=== PATIENT | female | born 1930 | race Caucasian/White ===

== ENCOUNTER 2016-08-26 09:06 | Emergency (ER) | payer MEDICARE ==
--- NOTE | 2016-08-26 09:58 | CT REPORT ---
HISTORY: Fall COMPARISON: None. TECHNIQUE: Axial non-contrast images obtained from skull vertex through foramen magnum. Dose reduction technique was utilized. FINDINGS: There is age-appropriate volume loss. There is no space-occupying mass or midline shift. There is no pathologic extra-axial fluid collection or intracranial hemorrhage. The ventricular configuration i s within normal limits. There is no hydrocephalus. The deep white matter and basal ganglia are maint ained. There is mottled hypoattenuation of the periventricular white matter of both frontal lobes whi ch is probably the sequelae of chronic small vessel ischemia. No evidence of acute infarct. There i s no skull fracture or depression. The paranasal sinuses are clear. IMPRESSION: 1. Age-appropriate volume loss. 2. No intracranial mass or hemorrhage. 3. Periventricular white matter changes consistent with chronic small vessel ischemia. Results were communicated to RORY HOWARD MD at 08/26/2016 9:56 AM. Final Electronic Signature: This report was electronically signed by Fercho Darby MD on 08/26/2016 9: 55 AM. [facility] /
--- NOTE | 2016-08-26 10:13 | RADIOLOGY REPORT ---
HISTORY: Fall. Wrist injury. COMPARISON: None. FINDINGS: 4 views of the wrist obtained. There is no fracture. There are marked degenerative changes involvin g the first carpal metacarpal joint and the intercarpal joint between the scaphoid trapezium and trap ezoid. There is no scapholunate dislocation. There is generalized osteopenia. No opaque foreign bod y or pathologic soft tissue calcifications. IMPRESSION: 1. Osteopenia with no acute fracture. 2. Marked degenerative joint disease involving the first carpal metacarpal and intercarpal joints bet ween the scaphoid trapezium and trapezoid. Results were communicated to RORY HOWARD MD at 08/26/2016 10:11 AM. Final Electronic Signature: This report was electronically signed by Fercho Darby MD on 08/26/2016 10 :10 AM. [facility] /
--- NOTE | 2016-08-27 13:03 | ER PHYSICIAN DOCUMENTATION ---
Physician Documentation [facility] Name:Joy Aguilera Age:86 yrs Sex:Female :[id number] Arrival Date:08/26/2016 Time:09:06 Bed6 Private MD: Marcos Huang Disposition: 08/26 10:15 Chart complete. cd Disposition: 08/26/16 10:13 Discharged to Home/Self Care. Impression: Facial Contusion, Head Contusion, Unspecified Part of Head, Wrist Contusion. - Condition is Good. - Discharge Instructions: CONTUSION, Upper Extremity, FACIAL CONTUSION, no wakeup. - Medical Reconciliation form form. - Follow up: Julio Paul DO, Randall Macias MD; When: 2 - 3 days; Reason: Recheck today's complaints, Continuance of care. - Problem is new. - Symptoms have improved. HPI: 09:10 This 86 yrs old Female presents to ER via Private Vehicle with complaints of cd Wrist Injury - rt and facial / head contusions. 09:10 Details of fall: The patient fell from an upright position, while walking, missed step cd on deck and fell forward. Onset: The symptom(s)/episode began/occurred acutely, yesterday. Associated injuries: The patient sustained injury to the head, contusion, tenderness, right hand, contusion, decreased range of motion, painful injury, swelling. Associated signs and symptoms: Pertinent negatives: abdominal pain, chest pain, confusion, headache, memory problems, nausea, pelvic pain, vomiting, weakness, Loss of consciousness: the patient experienced no loss of consciousness. Severity of symptoms: At their worst the symptoms were moderate, in the emergency department the symptoms are unchanged. The patient has not experienced similar symptoms in the past. Patient is on Coumadin for Atrial Fibrillation. Historical: - Allergies: No known Allergies; - Home Meds: 1. atorvastatin oral 2. Carbidopa-Levodopa Oral 3. Clobetasol Propionate Topical 4. Synthroid Oral 5. Lisinopril Oral 6. multivitamin with minerals oral 7. Tramadol Oral 8. Coumadin Oral - PMHx: ARTHRITIS; DIVERTICULITIS; STROKE; ATRIAL FIB; Pseudougout; HYPOTHYROIDISM; HYPERTENSION; - PSHx: Right Knee Surgery; - Tetanus: < 10 years. - Ebola Screening: : Patient denies exposure to infectious person. Patient denies travel to an Ebola-affected area in the 21 days before illness onset. . - Social history: Smoking status: Patient states was never smoker of tobacco. Patient uses alcohol but reports only rare drinking. Patient/guardian denies using marijuana. ROS: 09:25 Eyes: Negative for injury, pain, redness, discharge, blurry vision and loss of vision. cd ENT: Negative for injury, pain, epistaxis and discharge. Cardiovascular: Negative for chest pain, palpitations, edema and pleuritic pain. Respiratory: Negative for shortness of breath, dyspnea on exertion, cough, sputum production, wheezing, hemoptysis and pleuritic chest pain. Abdomen/GI: Negative for abdominal pain, nausea, vomiting, diarrhea, constipation, distension, melena, hematochezia and hematemesis. Back: Negative for injury, pain or muscle spasms. : Negative for injury, bleeding, discharge, dysuria, frequency, urgency and swelling. 09:25 Skin: Negative for injury, rash, itching and discoloration. cd 09:25 Constitutional: Negative for chills, fever, poor PO intake. 09:25 Neck: Negative for injury or acute deformity, pain with movement, pain at rest, stiffness, bony tenderness. 09:25 MS/extremity: Positive for injury or acute deformity, contusion, decreased range of motion, swelling, tenderness, of the dorsal aspect of proximal phalanx of right thumb and right wrist, Negative for paresthesias. 09:25 Neuro: Positive for head / facial contusions, Negative for altered mental status, headache, loss of consciousness, numbness, speech changes, syncope, tingling, visual changes, weakness. 09:25 All other systems are negative. Exam: Chest/axilla: Normal chest wall appearance and motion. Nontender with no deformity. No lesions are appreciated. Cardiovascular: Regular rate and rhythm with a normal S1 and S2. No gallops, murmurs, or rubs. Normal PMI, no JVD. No pulse deficits. Respiratory: Lungs have equal breath sounds bilaterally, clear to auscultation and percussion. No rales, rhonchi or wheezes noted. No increased work of breathing, no retractions or nasal flaring. Abdomen/GI: Soft, non-tender, with normal bowel sounds. No distension or tympany. No guarding or rebound. No evidence of tenderness throughout. Back: No spinal tenderness. No costovertebral tenderness. Full range of motion. Skin: Warm, dry with normal turgor. Normal color with no rashes, no lesions, and no evidence of cellulitis. 09:25 Neuro: Awake and alert, GCS 15, oriented to person, place, time, and situation. cd Cranial nerves II-XII grossly intact. Motor strength 5/5 in all extremities. Sensory grossly intact. Cerebellar exam normal. Normal gait. 09:25 Constitutional: The patient appears alert, awake, non-diaphoretic, non-toxic, well developed, well nourished, anxious, in obvious distress, mildly distressed. 09:25 Head/face: Noted is contusion, that is deep, of the forehead, right eye, right cheek, right ear, right baptist and right jaw, ecchymosis, that is severe, swelling, that is mild, tenderness, that is moderate, Basilar skull fracture findings: the patient does not have obvious signs of a basilar skull fracture, no Calabrese signs, no hemotympanum, no nasal drainage, no racoon eyes, hemotympanum, is not appreciated, bilaterally. 09:25 Eyes: Pupils: equal, round, and reactive to light and accomodation, Extraocular movements: intact throughout. 09:25 ENT: Exam is negative for acute changes. 09:25 Neck: C-spine: Nexus Criteria: Nexus criteria: no cervical midline tenderness, patient is not intoxicated, mental status is normal, no focal/neurologic deficits, and no painful distracting injuries are present, vertebral tenderness, is not appreciated. 09:25 Musculoskeletal/extremity: Extremities: grossly normal except: noted in the dorsal aspect of proximal phalanx of right thumb: contusion, decreased ROM, deformity, swelling, tenderness, Circulation is intact in all extremities. Sensation intact. 09:25 Neuro: Orientation: is normal, to person, place & time. Mentation: is normal, Memory: is normal, Cranial nerves: CN II- XII are normal as tested, Motor: is normal, Sensation: is normal. Vital Signs: 09:26 BP 160 / 65; Pulse 53; Resp 16; Temp 97.7; Pulse Ox 96% on R/A; Pain 5/10; st [place] Coma Score: 09:25 Eye Response: spontaneous(4). Verbal Response: oriented(5). Motor Response: obeys cd commands(6). Total: 15. MDM: 09:15 Data interpreted: Pulse oximetry: on room air is 96 %. Interpretation: normal. cd 09:20 Differential diagnosis: closed head injury, contusion, fracture, sprain, strain, ICH. cd 09:46 Patient medically screened. cd 10:00 Data reviewed: vital signs, nurses notes, old medical records, radiologic studies, and cd as a result, I will discharge patient. 10:15 Counseling: I had a detailed discussion with the patient and/or guardian regarding: the cd historical points, exam findings, and any diagnostic results supporting the discharge/admit diagnosis, radiology results, the need for outpatient follow up, for a recheck, with the patient's primary care provider, to return to the emergency department if symptoms worsen or persist or if there are any questions or concerns that arise at home. Response to treatment: the patient's symptoms have markedly improved after treatment, the patient's condition has returned to base line, and as a result, I will discharge patient. 08/26 10:00 Order name: CAT SCAN; HEAD W/O CON [id number]; Complete Time: 09:11 EDMS 04 09:10 Interpretation: See Report; Read by me. cd 08/26 10:15 Order name: WRIST; [place] [id number]; Complete Time: 09:11 EDMS 08/28 09:11 Interpretation: Abnormal: See Report; Read by me. cd 08/26 09:17 Order name: Ice Packs; Complete Time: :19 st Dispensed Medications: No medications were administered Signatures: Lupe Baer RN RN st Daley, Chris, MD MD cd
--- NOTE | 2016-08-27 13:03 | ER NURSING DOCUMENTATION ---
Nurse's Notes [facility] Name:Joy Aguilera Age:86 yrs Sex:Female :1930 Arrival Date:08/26/2016 Time:09:06 Bed6 Private MD: Diagnosis:Facial Contusion;Head Contusion, Unspecified Part of Head;Wrist Contusion Presentation: 08/26 09:19 Presenting complaint: Patient states: pt tripped on the last stair going down to a st wooden deck yesterday. pt now has facial bruising and right wrist pain. pt denies any LOC. Pt denies any headache. Transition of care: Home. 09:19 Acuity: ADA 3 st 09:19 Method Of Arrival: Private Vehicle st Triage Assessment: 09:23 General: Appears in no apparent distress, Behavior is cooperative. Pain: Complains of st pain in forehead, right eye, right cheek, right jaw, dorsal aspect of proximal phalanx of right thumb and right wrist Pain currently is 5 out of 10 on a pain scale. Pain began 1 day ago. Cardiovascular: No deficits noted. Rhythm is irregular. Respiratory: No deficits noted. GI: No deficits noted. Musculoskeletal: Circulation, motion, and sensation intact Range of motion intact in all extremities. pt is able to move her wrist and all her fingers though there is pain to do so. Swelling present in forehead, right eye, right cheek, right jaw, dorsal aspect of proximal phalanx of right thumb and dorsal aspect of right wrist. Injury Description: Bruise sustained to forehead, right eye, right cheek, right jaw, dorsal aspect of proximal phalanx of right thumb and dorsal aspect of right wrist is red, green, purple, yellow, was sustained 1 day ago. Laceration sustained to right supraorbital ridge is two small scabbed over cuts. Historical: - Allergies: No known Allergies; - Home Meds: 1. atorvastatin oral 2. Carbidopa-Levodopa Oral 3. Clobetasol Propionate Topical 4. Synthroid Oral 5. Lisinopril Oral 6. multivitamin with minerals oral 7. Tramadol Oral 8. Coumadin Oral - PMHx: ARTHRITIS; DIVERTICULITIS; STROKE; ATRIAL FIB; Pseudougout; HYPOTHYROIDISM; HYPERTENSION; - PSHx: Right Knee Surgery; - Tetanus: < 10 years. - Ebola Screening: : Patient denies exposure to infectious person. Patient denies travel to an Ebola-affected area in the 21 days before illness onset. . - Social history: Smoking status: Patient states was never smoker of tobacco. Patient uses alcohol but reports only rare drinking. Patient/guardian denies using marijuana. Screenin:26 Infectious Disease Risk None. Abuse screen: Denies threats or abuse. Denies injuries st from another. pt feels safe at home. Nutritional screening: No deficits noted. Vital Signs: 09:26 BP 160 / 65; Pulse 53; Resp 16; Temp 97.7; Pulse Ox 96% on R/A; Pain 5/10; st [place] Coma Score: 09:25 Eye Response: spontaneous(4). Verbal Response: oriented(5). Motor Response: obeys cd commands(6). Total: 15. ED Course: 09:07 Patient arrived in ED. ds 09:16 Lupe Baer RN is Primary Nurse. st 09:[address] 09:25 Port Xray Completed. ms 09:26 Valuables Remains with patient Patient has correct armband on for positive st identification. Bed in low position. Ice pack to injury. 09:[address] ms 09:40 Patient moved back from CT. ms 09:46 Marcos Lord MD is Attending Physician. cd 10:12 Julio Paul DO, Randall Macias MD is Referral Physician. cd 10:12 Assist Provider Assist provider with fracture care Circulation, motor and sensation is st intact. Immobilized with OCL splint, Post immobilization, circulation, motor and sensation remain intact. 10:23 Sling applied to right arm. st Administered Medications: No medications were administered Outcome: 10:13 Discharge ordered by . cd 10:23 Discharged to home ambulatory. st 10:23 Condition: improved 10:23 Discharge instructions given to patient, significant other, Instructed on discharge instructions, follow up and referral plans. Ortho Care 10:24 [address] st Signatures: Lupe Baer RN RN st Srot, Diana, Reg Reg Marcos Maradiaga MD MD cd Strickland, Mary ms Carli Mancilla
== END 2016-08-27 13:02 | disposition home or self-care (01) ==
LOC: ER 09:06
DX: S00.83XA Contusion of other part of head, initial encounter (principal); S60.211A Contusion of right wrist, initial encounter; W10.8XXA Fall (on) (from) other stairs and steps, initial encounter; Y92.018 Other place in single-family (private) house as the place of occurrence of the external cause; Y93.01 Activity, walking, marching and hiking; Z79.01 Long term (current) use of anticoagulants; I48.91 Unspecified atrial fibrillation; M19.90 Unspecified osteoarthritis, unspecified site; I10 Essential (primary) hypertension; Z79.899 Other long term (current) drug therapy
CPT/HCPCS: 70450; 85610; 99284